=== PATIENT | female | born 1955 | race Caucasian/White ===

== ENCOUNTER → 2017-01-31 | Outpatient (CLI) | payer OTHER | LOC: FIMAGING 15:12 | PROVIDERS: ATTEND Internal Medicine | DX: Z12.31 Encounter for screening mammogram for malignant neoplasm of breast (principal) | CPT/HCPCS: G0202 ==

== ENCOUNTER → 2018-02-11 | Outpatient (CLI) | payer OTHER | LOC: FIMAGING 14:00 | PROVIDERS: ATTEND Internal Medicine | DX: Z12.31 Encounter for screening mammogram for malignant neoplasm of breast (principal) ==

== ENCOUNTER → 2018-08-10 | Outpatient (CLI) | payer BC | LOC: BMCIMAGING 12:48 | PROVIDERS: ATTEND Internal Medicine | DX: J98.4 Other disorders of lung (principal) ==

== ENCOUNTER → 2018-11-06 | Outpatient (CLI) | payer BC | LOC: BMCIMAGING 14:44 ==